=== PATIENT | female | born 1950 | race Caucasian/White ===

== ENCOUNTER 2020-09-17 14:39 | Outpatient (CLI) | payer MEDICARE, BC | END 2020-09-17 14:40 | disposition home or self-care (01) | LOC: CSHMAMMO 14:39 | PROVIDERS: ATTEND Internal Medicine Endocrinology, Diabetes & Metabolism | DX: M81.0 Age-related osteoporosis without current pathological fracture (principal) | CPT/HCPCS: 77080 ==